=== PATIENT | female | born 1990 | race Caucasian/White ===

== ENCOUNTER 2017-12-31 | Emergency (ER) | payer OTHER, MEDICAID ==
[~2017-12-31] VITALS: Ht 154.9 cm; Wt 65.8 kg
[2017-12-31] MEDS ORDERED: CLOMID (00:15)
[2017-12-31 00:32] LABS: HEMATOCRIT 42.3 % (37.0-47.0); HEMOGLOBIN 14.8 gm/dL (12.0-15.0); MCH 31.5 pg (26.0-34.0); MCHC 35.1 g/dL (28.0-37.0); MCV 89.8 fL (80.0-100.0); MPV 9.6 fl. (7.2-11.1); RBC 4.71 mil/uL (4.20-5.00); RDW-CV 11.9 % (10.5-14.5); WBC 15.1 thou/uL (4.0-11.0)
[2017-12-31 00:38] LABS: URINE BILIRUBIN NEGATIVE (Negative); URINE BLOOD NEGATIVE (Negative); URINE CLARITY CLEAR; URINE COLOR YELLOW; URINE GLUCOSE-RANDOM NEGATIVE (Negative); URINE KETONES NEGATIVE (Negative); URINE LEUKOCYTES NEGATIVE (Negative); URINE NITRITE NEGATIVE (Negative); URINE PROTEIN NEGATIVE (Negative); URINE SPECIFIC GRAVITY >= 1.030 (1.005-1.030); URINE UROBILINOGEN 0.2 E.U./dl (0.2-1.0)
[2017-12-31 00:43] LABS: CALCIUM 8.6 mg/dL (8.5-10.1); CREATININE 0.9 mg/dL (0.6-1.3); POTASSIUM 3.7 mmol/L (3.5-5.1)
[2017-12-31 00:44] LABS: AMP/METHAMP Negative (Negative); BARBITURATES Negative (Negative); BENZODIAZEPINES Negative (Negative); COCAINE Negative (Negative); METHADONE Negative (Negative); OPIATES Negative (Negative); PCP Negative (Negative); THC POSITIVE (Negative)
[2017-12-31 00:44] LABS: SALICYLATE < 2.8 mg/dL (2.8-20.0)
[2017-12-31 00:47] LABS: ACETAMINOPHEN < 2 ug/mL (10-30); ALCOHOL < 10 mg/dL (<10)
[2017-12-31 00:48] LABS: TOTAL BILIRUBIN 0.6 mg/dL (<0.1-1.0); TOTAL PROTEIN 7.4 g/dL (6.4-8.2)
[2017-12-31 08:19] VITALS: BP 106/58
== END 2017-12-31 08:19 ==
LOC: M.ERS
PROVIDERS: Personal Emergency Response Attendant
DX: R45.851 Suicidal ideations (principal); F32.9 Major depressive disorder, single episode, unspecified; Z79.899 Other long term (current) drug therapy